=== PATIENT | female | born 1960 | race Caucasian/White ===

== ENCOUNTER 2019-09-27 12:59 | Emergency (ER) | payer OTHER ==
[~2019-09-27] VITALS: Ht 165.1 cm; Wt 80.3 kg
[2019-09-27] MEDS ORDERED: METFORMIN HCL500 M3 PO (14:00)
[2019-09-27 15:23] LABS: ABSOLUTE NEUTROPHILS 5.5 thou/uL (1.4-8.2); BASOPHILS 0.7 % (0.0-2.0); EOSINOPHILS 1.3 % (0.0-3.0); HEMATOCRIT 40.9 % (37.0-47.0); LYMPHOCYTES 24.2 % (24.0-44.0); MCH 31.7 pg (26.0-34.0); MCHC 34.1 g/dL (28.0-37.0); MCV 92.9 fL (80.0-100.0); MONOCYTES 5.1 % (1.0-8.0); PLATELET COUNT 249 thou/uL (150-400); POLYS 68.7 % (36.0-66.0); RDW 12.5 % (10.5-14.5)
[2019-09-27 15:29] LABS: CALCIUM 9.9 mg/dL (8.5-10.1); CREATININE 0.7 mg/dL (0.6-1.0); POTASSIUM 4.1 mmol/L (3.5-5.1)
[2019-09-27 15:34] LABS: ALBUMIN 3.4 g/dL (3.4-5.0); TOTAL BILIRUBIN 0.3 mg/dL (<0.1-1.0); TOTAL PROTEIN 8.1 g/dL (6.4-8.2)
[2019-09-27] MEDS ORDERED: CEPHALEXIN500 MG PO (16:31)
[2019-09-27 16:46] VITALS: BP 114/55
== END 2019-09-27 16:47 | disposition home or self-care (01) ==
LOC: ER 12:59
PROVIDERS: Nurse Practitioner
DX: L03.116 Cellulitis of left lower limb (principal); E11.9 Type 2 diabetes mellitus without complications; I10 Essential (primary) hypertension